=== PATIENT | female | born 1945 ===

== ENCOUNTER 2023-01-06 05:25 | Day surgery (SDC) | payer OTHER | END 2023-01-06 14:50 | disposition home or self-care (01) | LOC: CIR.AMB 05:25 | PROVIDERS: ATTEND Obstetrics & Gynecology Gynecology | DX: T83.722A Exposure of implanted urethral mesh into urethra, initial encounter (principal); R35.0 Frequency of micturition; I10 Essential (primary) hypertension; Z20.822 Contact with and (suspected) exposure to COVID-19; Z91.041 Radiographic dye allergy status ==